=== PATIENT | female | born 1955 | race Caucasian/White ===

== ENCOUNTER 2021-07-02 09:56 | Emergency (ER) | payer OTHER ==
--- NOTE | 2021-07-02 10:14 | ED Physician Documentation ---
PD HPI BACK PAIN - Stated complaint Stated Complaint: TAILBONE/BACK PX - Chief complaint Chief Complaint: Trauma Ch/Bk - History obtained from History obtained from: Patient - History of Present Illness Timing - onset: How many days ago (2) Timing - duration: Days (2) Timing - details: Abrupt onset, Still present Location: Mid, Lower, Other (and mainly sacral area.) Quality: Pain, Spasm, Aching Associated symptoms: No: Weakness, Numbness, Incontinent of urine Worsened by: Movement, Palpation, Other (sitting) Contributing factors: Trauma (she states she stumbled from a back of a truck and tried to stop from falling, stumbling backward until fell onto sacral/buttock and then flat onto back. Might have struck head. NO LOC. minimal headache. Mainly pain and bruising/swelling sacral/gluteal area.), Anticoagulated (on plavix) Similar symptoms before: Has not had sx before Recently seen: Not recently seen Review of Systems Constitutional: denies: Fever, Chills Nose: denies: Rhinorrhea / runny nose, Congestion Throat: denies: Sore throat Cardiac: denies: Chest pain / pressure Respiratory: denies: Cough GI: denies: Abdominal Pain Musculoskeletal: reports: Neck pain, Back pain (lumbosacral, not really hurting in thoracic area but some to left scapular area.) Neurologic: reports: Headache (mild posterior). denies: Generalized weakness, Focal weakness, Numbness, Altered mental status, LOC PD PAST MEDICAL HISTORY - Past Medical History Cardiovascular: None Respiratory: None Neuro: None Endocrine/Autoimmune: None - Present Medications Home Medications: Ambulatory Orders Medication Instructions Recorded Confirmed Amlodipine Besylate [Norvasc] 5 mg PO DAILY 07/02/21 07/02/21 Atorvastatin [Lipitor] 40 mg PO DAILY 07/02/21 07/02/21 Clopidogrel [Plavix] 75 mg PO DAILY 07/02/21 07/02/21 Clopidogrel [Plavix] 75 mg PO DAILY 30 Days #30 tablet 07/02/21 HYDROcod/ACETAM 5/325 [[place] 5/325] 1 ea PO Q6H PRN #18 tablet 07/02/21 Losartan [Cozaar] 100 mg PO DAILY 07/02/21 07/02/21 Metoprolol Succinate [Toprol Xl] 25 mg PO DAILY 07/02/21 07/02/21 Nitroglycerin [Nitrostat] 0.4 mg SL [id number] 07/02/21 07/02/21 Pantoprazole [Protonix] 40 mg PO DAILY 07/02/21 07/02/21 methocarbamoL [Robaxin] 500 mg PO Q6H PRN #30 tablet 07/02/21 - Allergies Allergies/Adverse Reactions: Allergies Allergy/AdvReac Type Severity Reaction Status Date / Time droperidol Allergy Anaphylaxis Verified 07/02/21 10:08 Penicillins Allergy Unknown Verified 07/02/21 10:08 PD ED PE NORMAL - Vitals Vital signs reviewed: Yes - General General: Alert and oriented X 3, No acute distress, Well developed/nourished, Ot her (ambulatory to bathroom, with some stiffness of lower back with gait. ) - HEENT HEENT: Atraumatic - Neck Neck: Supple, no meningeal sign, No adenopathy, Other (some tender lower neck paravertebral muscles. NO noted deformity. ) - Cardiac Cardiac: RRR, No murmur - Respiratory Respiratory: Clear bilaterally, Other (no chestall tenderness) - Abdomen Abdomen: Soft, Non tender - Back Back: Other (some tender in lower lumbar area and paralumbar muscles. There is large hematoma and purple bruising left gluteal area, with tenderness. This extends to sacral midline area. ) - Derm Derm: Normal color, Warm and dry - Extremities Extremities: Normal ROM s pain - Neuro Neuro: Alert and oriented X 3, No motor deficit, No sensory deficit, Normal speech, Other (norml patellar reflexes. ) Results - Vitals Vitals: Vital Signs - 24 hr 07/02/21 07/02/21 10:01 12:07 Temperature 35.8 C L Heart Rate 71 64 Respiratory 16 16 Rate Blood Pressure 149/63 H 121/71 O2 Saturation 99 98 Oxygen O2 Source Room air - Rads (name of study) pelvic CT Radiology: Prelim report reviewed (no fractures. ), See rad report head CT Radiology: Prelim report reviewed (no ICH nor acute findings. ), See rad report Spine CT Radiology: Prelim report reviewed (no noted fractures. Some disc disease L3-4 causing mild central canal stenosis. THere was question of T4 compressive deformity.), See rad report PD MEDICAL DECISION MAKING - ED course Complexity details: reviewed results (question T4 compressive deformity versus normal variant. She is not hurting in that area of spine in particular. THe main hurting areas of neck and lumbar/thoracolumbar are without fractures. No sacral frx. ), considered differential, d/w patient Departure - Departure Disposition: 01 Home, Self Care Clinical Impression: Accidental fall Qualifiers: Encounter type: initial encounter Qualified Code(s): W19.XXXA - Unspecified fall, initial encounter Sacral contusion Qualifiers: Encounter type: initial encounter Qualified Code(s): S30.0XXA - Contusion of lower back and pelvis, initial encounter Back strain Qualifiers: Encounter type: initial encounter Qualified Code(s): S39.012A - Strain of muscle, fascia and tendon of lower back, initial encounter Condition: Stable Record reviewed to determine appropriate education?: Yes Instructions: ED Contusion Back Follow-Up: [facility] [Provider Group] Prescriptions: HYDROcod/ACETAM 5/325 [[place] 5/325] 1 ea PO Q6H PRN #18 tablet PRN Reason: Pain Clopidogrel [Plavix] 75 mg PO DAILY 30 Days #30 tablet methocarbamoL [Robaxin] 500 mg PO Q6H PRN #30 tablet PRN Reason: Spasms Comments: No signs of fractures noted on your scan imaging. You will be sore from the muscle injury and also the swelling with the hematoma. Warm towels or soaks to the hematoma to help soften the blood and absorb more easily. Continue usual medications. Use Tylenol every 4-6 hours if needed for pain or hydrocodone/acetaminophen if needed for worse pain. You can add methocarbamol muscle relaxant if needed for stiffness and spasms. No NSAID use as you are aware since you are on Plavix. I would anticipate improvement over the next week or 2 with the general symptoms and the bruising. I transmitted your prescriptions to [facility] pharmacy in [place]. I am prescribing a short course of narcotic pain medication for you. These are potentially dangerous and addictive medications that should be used carefully. These medications may constipate you. Take an [id number] stool softener such as docusate twice daily with plenty of water while taking these medications. If you go 24 hours without a bowel movement, take [id number] MiraLAX, per package instructions. Do not drink or drive while taking these medications. If you received narcotic or sedating medications while in the emergency department do not drive for 24 hours. Store this medication in a safe, secure place and out of reach of children. It is a violation of federal law to give or sell this medication to another person or to use in a manner other than prescribed. The ED will not refill narcotic prescriptions, including prescriptions lost or stolen. You can dispose of unwanted medications at the [facility]'s office or at several pharmacies such as [facility]. Discharge Date/Time: 07/02/21 13:04
[2021-07-02] MEDS ORDERED: ACETAMINOPHEN 325 MG TABLET PO STA (10:40)
[2021-07-02] MEDS ORDERED: HYDROcod/ACETAM 5/325 MG TABLET PO STA (10:40)
[2021-07-02] MEDS ORDERED: methocarbamoL 500 MG TABLET PO STA (10:40)
--- NOTE | 2021-07-02 11:53 | CT Report ---
PROCEDURE: CT cervical spine without contrast INDICATIONS: fell backward, sacral, back, neck pain TECHNIQUE: Noncontrast 3 mm thick sections acquired from the skull base to the T4 level. Sagittal a nd coronal reformats were then constructed. For radiation dose reduction, the following was used: a utomated exposure control, adjustment of mA and/or kV according to patient size. COMPARISON: None. FINDINGS: Image quality: Excellent. Bones: No fractures or dislocations. Visualized superior ribs are intact. Multilevel degenerative disc space narrowing and hypertrophic facet joints noted in the mid cervical spine. 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 No paravertebral hematomas. No ap ical pneumothoraces. IMPRESSION: Degenerative facet hypertrophy predominantly on the left without fracture or malalignment Reviewed by: Jameel Baez MD on 07/02/2021 10:52 AM [place] Approved by: Jameel Baez MD on 07/02/2021 10:52 AM [place] Station ID: [id number]
--- NOTE | 2021-07-02 11:56 | CT Report ---
PROCEDURE: CT head without contrast INDICATIONS: fell back, struck head, on Plavix TECHNIQUE: Noncontrast 4.5 mm thick angled axial sections acquired from the foramen magnum to the ve rtex. For radiation dose reduction, the following was used: automated exposure control, adjustment of mA and/or kV according to patient size. COMPARISON: None. FINDINGS: Image quality: Excellent. CSF spaces: Basal cisterns are patent. No extra-axial fluid collections. Ventricles are normal in size and shape. Brain: No midline shift. No intracranial masses or hemorrhage. Murphy-white matter interface is norm al. Skull and face: Calvarium and visualized facial bones are intact, without suspicious lesions. Sinuses: Visualized sinuses and mastoids are clear. IMPRESSION: Mild atrophy and chronic ischemic change without acute hemorrhage or mass effect. Reviewed by: Jameel Baez MD on 07/02/2021 10:55 AM [facility] Approved by: Jameel Baez MD on 07/02/2021 10:55 AM [facility] Station ID: [id number]
--- NOTE | 2021-07-02 12:00 | CT Report ---
PROCEDURE: LUMBAR SPINE WO INDICATIONS: fell backward, sacral, back, neck pain TECHNIQUE: Noncontrast 3 mm thick sections acquired from the T12 level to the sacrum. Sagittal and coronal refo rmats were constructed. For radiation dose reduction, the following was used: automated exposure co ntrol, adjustment of mA and/or kV according to patient size. COMPARISON: None. FINDINGS: Image quality: Excellent. Bones: There is normal bony alignment. No acute vertebral body compression fractures. No suspiciou s lytic or blastic bony lesions. Central spinal caliber is of normal overall caliber. No pars defec ts. At the disc levels, there is disc space narrowing and hypertrophic facet joints in the lower lumbar s pine resulting in moderate central stenosis and effacement of the left lateral recess at L3-4 with a moderate bilateral foraminal stenosis at L3-4, L4-5 and L5-S1 Soft tissues: No retroperitoneal masses or hematomas. Visualized aorta is normal in caliber. Ather osclerotic calcification of the abdominal aorta without evidence of aneurysm. Incidental sigmoid diverticulosis noted IMPRESSION: 1. No evidence of fracture or traumatic malalignment 2. Multilevel degenerative disc disease and arthropathy results in varying degrees of central and for aminal stenosis including moderate central stenosis at L3-4 Reviewed by: Jameel Baez MD on 07/02/2021 10:59 AM [facility] Approved by: Jameel Baez MD on 07/02/2021 10:59 AM [place] Station ID: [id number]
--- NOTE | 2021-07-02 12:03 | CT Report ---
PROCEDURE: CT abdomen and pelvis without contrast INDICATIONS: fell backward, sacral, back, neck pain TECHNIQUE: Noncontrast 3 mm axial sections acquired through the bony pelvis, with coronal and sagittal reformatt ing. For radiation dose reduction, the following was used: automated exposure control, adjustment of mA and/or kV according to patient size. COMPARISON: None. FINDINGS: Image quality: Excellent. Bones: Normal bone mineralization present. Degenerative changes in the lower lumbar spine noted. The sacrum, pelvis and both proximal femurs are unremarkable without evidence of fracture. Soft tissues: Sigmoid diverticulosis without evidence of diverticulitis present. The distal abdomina l aorta and iliac vessels are densely calcified without aneurysm. Ventral abdominal wall intact. No r etroperitoneal hematoma. IMPRESSION: Degenerative changes without fracture or retroperitoneal hematoma. Reviewed by: Jameel Baez MD on 07/02/2021 11:[address] [facility] Approved by: Jameel Baez MD on 07/02/2021 11:[address] [facility] Station ID: [id number]
--- NOTE | 2021-07-02 12:10 | CT Report ---
PROCEDURE: CT thoracic spine without contrast INDICATIONS: fall with back pain TECHNIQUE: Noncontrast 3 mm thick sections acquired through the region of interest in the thoracic spine. Sagit emmanuel and coronal reformats were then constructed. For radiation dose reduction, the following was used : automated exposure control, adjustment of mA and/or kV according to patient size. COMPARISON: None. FINDINGS: Image quality: Excellent. Bones: There is normal overall bony alignment. Mild anterior wedging of the fifth thoracic vertebral body noted without prevertebral soft tissue swelling. No retropulsed fracture fragment present. Brandee robby the vertebral body heights and alignment maintained. No suspicious sclerotic or lytic bony lesi ons. Central spinal canal is of normal overall caliber. Soft tissues: No paravertebral masses or hematomas. Visualized posteromedial lungs appear clear. D egenerative interstitial thickening noted in the visualized portions of the lungs without pneumothora x or pulmonary contusion. IMPRESSION: 1. Mild T5 anterior height loss may reflect compression fracture versus physiologic wedging. No retro pulsed fracture fragment. Reviewed by: Jameel Baez MD on 07/02/2021 11:08 AM [facility] Approved by: Jameel Baez MD on 07/02/2021 11:08 AM [facility] Station ID: [id number]
[2021-07-02 12:36] VITALS: BP 121/71
== END 2021-07-02 13:04 | disposition home or self-care (01) ==
LOC: ED 09:56
DX: S39.012A Strain of muscle, fascia and tendon of lower back, initial encounter (principal); S30.0XXA Contusion of lower back and pelvis, initial encounter; M54.2 Cervicalgia; W17.89XA Other fall from one level to another, initial encounter; Y93.89 Activity, other specified; M51.36 Other intervertebral disc degeneration, lumbar region; M48.061 Spinal stenosis, lumbar region without neurogenic claudication; Z79.02 Long term (current) use of antithrombotics/antiplatelets
CPT/HCPCS: 70450; 72125; 72128; 72131; 72192; 99282; 99284; A9270

== ENCOUNTER 2021-12-14 09:16 | Outpatient (CLI) | payer OTHER ==
[2021-12-14 12:15] LABS: BASOPHILS # (AUTO) 0.1 10^3/uL (0.0-0.1); BASOPHILS % (AUTO) 0.9 %; EOSINOPHILS # (AUTO) 0.2 10^3/uL (0.0-0.7); EOSINOPHILS % (AUTO) 2.1 %; HCT - HEMATOCRIT 47.3 % (37.0-47.0); HGB - HEMOGLOBIN 16.2 g/dL (12.0-16.0); LYMPHOCYTES # (AUTO) 1.9 10^3/uL (1.5-3.5); LYMPHOCYTES % (AUTO) 25.8 %; MEAN CORPUSCULAR HEMOGLOBIN 30.3 pg (27.0-31.0); MEAN CORPUSCULAR HGB CONC 34.2 g/dL (32.0-36.0); MEAN CORPUSCULAR VOLUME 88.6 fL (81.0-99.0); MEAN PLATELET VOLUME 9.8 fL (7.9-10.8); MONOCYTES # (AUTO) 0.7 10^3/uL (0.0-1.0); MONOCYTES % (AUTO) 9.5 %; NEUTROPHILS # (AUTO) 4.6 10^3/uL (1.5-6.6); NEUTROPHILS % (AUTO) 61.3 %; PLT - PLATELET COUNT 315 10^3/uL (130-450); RED BLOOD COUNT 5.34 10^6/uL (4.20-5.40); RED CELL DISTRIBUTION WIDTH 13.2 % (12.0-15.0); WHITE BLOOD COUNT 7.5 x10^3/uL (4.8-10.8)
[2021-12-14 12:39] LABS: ALBUMIN 4.6 g/dL (3.2-5.5); ALBUMIN/GLOBULIN RATIO 1.5 (1.0-2.2); ALKALINE PHOSPHATASE 63 IU/L (42-121); ALT ALANINE AMINOTRANSFERASE 37 IU/L (10-60); AST ASPARTATE AMINOTRANSFERASE 24 IU/L (10-42); BILIRUBIN,TOTAL 0.7 mg/dL (0.2-1.0); BUN - BLOOD UREA NITROGEN 14 mg/dL (6-20); CALCIUM 9.7 mg/dL (8.5-10.3); CARBON DIOXIDE - CO2 27 mmol/L (21-32); CHLORIDE 103 mmol/L (101-111); CHOL/HDL RATIO 2.7 (<4.4); CHOLESTEROL 179 mg/dL; CREATININE 0.8 mg/dL (0.4-1.0); GFR - MDRD 72 (>89); GLUCOSE 106 mg/dL (70-100); HDL CHOLESTEROL 67 mg/dL; LDL CHOLESTEROL,CALCULATED 98 mg/dL; LDL/HDL RATIO 1.5 (<4.4); POTASSIUM 4.2 mmol/L (3.5-5.0); SODIUM 140 mmol/L (135-145); TOTAL PROTEIN 7.7 g/dL (6.7-8.2); TRIGLYCERIDES 72 mg/dL; VLDL CHOLESTEROL 14 mg/dL
[2021-12-14 12:52] LABS: THYROID STIMULATING HORMONE 1.63 uIU/mL (0.34-5.60)
[2021-12-14 12:55] LABS: ESTIMATED AVERAGE GLUCOSE 126 mg/dL (70-100)
== END 2021-12-14 09:17 | disposition home or self-care (01) ==
LOC: LAB.N 09:16
PROVIDERS: ATTEND Family Medicine
DX: I25.119 Atherosclerotic heart disease of native coronary artery with unspecified angina pectoris (principal); G47.33 Obstructive sleep apnea (adult) (pediatric); M19.90 Unspecified osteoarthritis, unspecified site; K21.9 Gastro-esophageal reflux disease without esophagitis; R73.9 Hyperglycemia, unspecified
CPT/HCPCS: 36415; 80053; 80061; 83036; 83721; 84443; 85025

== ENCOUNTER 2022-03-29 07:00 | Outpatient (CLI) | payer OTHER | END 2022-03-29 07:01 | disposition home or self-care (01) | LOC: DI 07:00 | DX: I35.2 Nonrheumatic aortic (valve) stenosis with insufficiency (principal) | CPT/HCPCS: 93306 ==

== ENCOUNTER 2022-03-29 15:19 | Outpatient (CLI) | payer OTHER ==
--- NOTE | 2022-03-29 15:38 | Ultrasound Report ---
PROCEDURE: Carotid Doppler Complete INDICATIONS: CAROTID ARTERY STENOSIS TECHNIQUE: Color and pulse Doppler interrogation was performed of both carotid systems, with image documentation and velocity measurements. COMPARISON: None. FINDINGS: Right side: Brachial blood pressure: 150/63 mm Hg. Common carotid artery peak systolic velocity: 75 cm/sec. Internal carotid artery peak systolic velocity: 168 cm/sec. Internal carotid artery end diastolic velocity: 41 cm/sec. External carotid artery peak systolic velocity: 246 cm/sec. ICA/CCA peak systolic ratio: 2.2 . Murphy scale imaging description: Moderate plaque at the bifurcation Percent internal carotid artery stenosis: Less than 50% stenosis . Vertebral artery: Flow direction is antegrade. Left side: Brachial blood pressure: 141/58 mm Hg. Common carotid artery peak systolic velocity: 70 cm/sec. Internal carotid artery peak systolic velocity: 257 cm/sec. Internal carotid artery end diastolic velocity: 67 cm/sec. External carotid artery peak systolic velocity: 1:15 cm/sec. ICA/CCA peak systolic ratio: 3.7 . Murphy scale imaging description: Moderate plaque at the bifurcation Percent internal carotid artery stenosis: 50-69% stenosis . Vertebral artery: Flow direction is antegrade. IMPRESSION: Less than 50% stenosis of the right internal carotid artery. 50-69% stenosis of the left internal carotid artery. Possible mild stenosis at the origin of the right external carotid artery. The estimate of stenosis included in the report of the imaging study was calculated using the NASCET method Reviewed by: Sarah Taylor MD on 03/29/2022 3:37 PM PST Approved by: Sarah Taylor MD on 03/29/2022 3:37 PM PST Station ID: [id number]
== END 2022-03-29 15:20 | disposition home or self-care (01) ==
LOC: DI 15:19
PROVIDERS: ATTEND Family Medicine
DX: I65.29 Occlusion and stenosis of unspecified carotid artery (principal); I35.2 Nonrheumatic aortic (valve) stenosis with insufficiency
CPT/HCPCS: 93306; 93880

== ENCOUNTER 2022-04-26 09:03 | Outpatient (CLI) | payer OTHER ==
--- NOTE | 2022-04-27 10:37 | Mammography Report ---
BILATERAL DIGITAL SCREENING MAMMOGRAM 3D/2D: 04/26/2022 CLINICAL: Routine screening. Baseline exam. No prior exams were available for comparison. There are scattered areas of fibroglandular density in both breasts (category b / 25%-50% glandular t issue). No significant masses, calcifications, or other findings are seen in either breast. IMPRESSION: NEGATIVE There is no mammographic evidence of malignancy. A 1 year screening mammogram is recommended. Based on the Tyrer Cuzick model (a risk assessment model) the patients lifetime risk is 10.5% and he r 10 year risk is 4.9%. According to the ACR, ACS, and NCCN guidelines, an annual breast MRI exam alvaro ng with mammogram is recommended if the patients lifetime risk is 20% or greater. This exam was interpreted at Station ID: [id number]. NOTE: For mammograms, a report in lay terms will be sent to the patient. Approximately 15% of breast malignancies will not be visualized mammographically. In the management of a palpable breast mass, a negative mammogram must not discourage biopsy of a clinically suspicious lesion. Electronically Signed By: Yariel wray/marita:04/26/2022 11:39:59 ACR BI-RADS Category 1: Negative 3341F PARENCHYMAL PATTERN: (A) - The breast(s) demonstrate(s) scattered fibroglandular densities. BI-RADS CATEGORY: (1) - 1 RECOMMENDATION: (ANNUAL) - Recommend routine annual screening mammography. [id number] 1 year screening LATERALITY: (B)
== END 2022-04-26 09:04 | disposition home or self-care (01) ==
LOC: DI.N 09:03
DX: Z12.31 Encounter for screening mammogram for malignant neoplasm of breast (principal)

== ENCOUNTER 2023-01-18 15:20 | Outpatient (CLI) | payer OTHER | END 2023-01-18 15:21 | disposition home or self-care (01) | LOC: LAB 15:20 | PROVIDERS: ATTEND Otolaryngology | DX: R07.0 Pain in throat (principal) | CPT/HCPCS: 87070 ==

== ENCOUNTER 2023-03-01 07:46 | Outpatient (CLI) | payer OTHER ==
--- NOTE | 2023-03-01 11:19 | Ultrasound Report ---
PROCEDURE: Abdomen Limited INDICATIONS: ELEVATED FERRITIN TECHNIQUE: Real-time focused scanning was performed of the abdomen, with image documentation. COMPARISONS: None. FINDINGS: Liver: Liver is normal in size and homogeneous in echotexture. Gallbladder: No stones or sludge. Normal wall thickness of 1.2 mm. No cholecystic fluid. Biliary ducts: Intrahepatic bile ducts are non-dilated. Extrahepatic bile duct caliber measures 5.7 mm. Normal is 6-7 mm or less in diameter, or 10 mm or less post-cholecystectomy. Pancreas: Visualized portions of the pancreas are sonographically normal. Right kidney: Normal in size and echotexture. Right kidney measures 10.2 cm long. No hydronephrosis or nephrolithiasis. No solid masses. No complex renal cystic lesions which require follow-up. Aorta: Visualized aorta is normal in caliber at less than 3 cm. IVC: Intrahepatic inferior vena cava is patent. Miscellaneous: No free abdominal fluid. IMPRESSION: Unremarkable abdominal ultrasound. Reviewed by: Branden Starks MD on 03/01/2023 11:17 AM PDT Approved by: Branden Starks MD on 03/01/2023 11:17 AM PDT Station ID: [id number]
== END 2023-03-01 07:47 | disposition home or self-care (01) ==
LOC: DI 07:46
PROVIDERS: ATTEND Naturopath
DX: R79.89 Other specified abnormal findings of blood chemistry (principal)